=== PATIENT | female | born 1960 | race Caucasian/White ===

== ENCOUNTER 2018-02-06 09:14 | Emergency (ER) | payer MEDICAID ==
[~2018-02-06] VITALS: Ht 154.9 cm; Wt 55.2 kg
[~2018-02-06 09:14] MED LIST: ACET325T14 PO; CEFD300C37 PO; CLAR500T PO; CYAN10005 PO; DOXY100T PO; ERGO500017 PO; FOLI-17 PO; PANT40TA5 PO; THIA100T67 PO
[2018-02-06] MEDS ORDERED: ATEN25TA PO (09:56)
[2018-02-06] MEDS ORDERED: LORA2TAB PO (09:56)
[2018-02-06] MEDS ORDERED: SIMV5TAB14 PO (09:58)
--- NOTE | 2018-02-06 10:03 | NUR ---
ST CONTACT WITH PATIENT, C/O DIZZINESS AND LOW BACK PAIN, TRAIN GATEMAN ON PATIENT, NAD NOTED, PATIENT ALSO C/O PAINFUL URINATION, RECENTLY DIAGNOSED AND FINISHED TAKING ABX FOR UTI 2-3 WEEKS AGO, ABX NOT HELPING. LAB AT BEDSIDE, CALL LIGHT WITHIN REACH. Addendum: 02/06/18 at 1004 by MILLIE FIRST CONTACT WITH PATIENT, C/O DIZZINESS AND LOW BACK PAIN, TRAIN GATEMAN ON PATIENT, NAD NOTED, PATIENT ALSO C/O PAINFUL URINATION, RECENTLY DIAGNOSED AND FINISHED TAKING ABX FOR UTI 2-3 WEEKS AGO, ABX NOT HELPING. LAB AT BEDSIDE, CALL LIGHT WITHIN REACH.
--- NOTE | 2018-02-06 10:05 | NUR ---
PATIENT AMBULATORY TO BATHROOM WITH STEADY GAIT, SMALL AMOUNT OF URINE COLLECTED AND WALKED TO LAB.
[2018-02-06 10:11] LABS: BASOPHILS # (AUTO) 0.06 x10^3/uL (0-0.1); BASOPHILS % (AUTO) 1 % (0-1); EOSINOPHILS # (AUTO) 0.04 x10^3/uL (0-0.4); EOSINOPHILS % (AUTO) 1 % (1-7); LYMPHOCYTES # (AUTO) 2.15 x10^3/uL (1-3.4); LYMPHOCYTES % (AUTO) 31 % (22-44); MD NO; MEAN CORPUSCULAR HGB CONC 33.3 g/dL (32.4-35.8); MEAN CORPUSCULAR VOLUME 96.2 fL (80-100); MEAN PLATELET VOLUME 6.7 fL (7.4-10.4); MONOCYTES # (AUTO) 0.34 x10^3/uL (0.2-0.8); MONOCYTES % (AUTO) 5 % (2-9); NEUTROPHILS # (AUTO) 4.32 x10^3/uL (1.8-6.8); NEUTROPHILS % (AUTO) 63 % (42-75); PLATELET COUNT 492 x10^3/uL (130-400); RED BLOOD COUNT 3.41 x10^6/uL (3.82-5.3); RED CELL DISTRIBUTION WIDTH 16.6 % (9.6-15.2)
[2018-02-06 10:23] LABS: ALANINE AMINOTRANSFERASE 22 U/L (12-78); ANION GAP 10 mmol/L (5-15); CALCIUM 8.6 mg/dL (8.5-10.1); CHLORIDE 112 mmol/L (98-107); CREATININE 2.29 mg/dL (0.55-1.02)
[2018-02-06 10:25] LABS: ALKALINE PHOSPHATASE 118 U/L (45-117); BILIRUBIN,TOTAL 0.4 mg/dL (0.2-1.0); TOTAL PROTEIN 7.5 g/dL (6.4-8.2)
[2018-02-06 10:39] LABS: CULTURE INDICATED? YES; MICROSCOPIC INDICATED
--- NOTE | 2018-02-06 11:15 | NUR ---
RESULTS BACK, CHART UP FOR RECHECK.
[2018-02-06] MEDS ORDERED: SULFAMETH./TRIMETHOPRIM DS 800MG/160MG TABLET ONE (11:30)
[2018-02-06] MEDS ORDERED: SULFAMETH./TRIMETHOPRIM DS 800MG/160MG TABLET PO ONE (11:30)
[2018-02-06 11:44] VITALS: BP 106/65
--- NOTE | 2018-02-06 11:46 | NUR ---
Patient/Caregiver given discharge instructions and they have confirmed that they understand the instructions. Patient ambulatory with steady gait.
== END 2018-02-06 11:47 | disposition home or self-care (01) ==
LOC: ED 10:38
DX: R55 Syncope and collapse (principal); N30.01 Acute cystitis with hematuria; R42 Dizziness and giddiness; I10 Essential (primary) hypertension
CPT/HCPCS: 36415; 80053; 81001; 83735; 85025; 87077; 87086; 87186; 93005; 99284

== ENCOUNTER 2018-02-26 13:24 | Inpatient (IN) | payer MEDICAID ==
[~2018-02-26] VITALS: Ht 152.4 cm; Wt 66.6 kg
[2018-02-26] MEDS: SODIUM CHLORIDE 0.9% 1,000 ML IV SCH ×2 (06:00→17:06)
[~2018-02-26 13:24] MED LIST changes: +ATEN25TA PO; +LORA2TAB PO; +SIMV5TAB14 PO
[2018-02-26 14:42] LABS: MEAN CORPUSCULAR HEMOGLOBIN 32.6 pg (27.0-34.8); MEAN CORPUSCULAR HGB CONC 33.1 g/dL (32.4-35.8); MEAN CORPUSCULAR VOLUME 98.6 fL (80-100); MEAN PLATELET VOLUME 6.4 fL (7.4-10.4); PLATELET COUNT 593 x10^3/uL (130-400); RED BLOOD COUNT 2.99 x10^6/uL (3.82-5.3)
--- NOTE | 2018-02-26 14:46 | NUR ---
PT WALKED BACK TO ROOM
[2018-02-26 14:49] LABS: ALBUMIN 2.4 g/dL (3.4-5.0); ANION GAP 9 mmol/L (5-15); CALCIUM 8.5 mg/dL (8.5-10.1); CHLORIDE 110 mmol/L (98-107); CREATININE 2.69 mg/dL (0.55-1.02); MD YES
[2018-02-26 15:08] LABS: BAND#(MANUAL) 1.65 x10^3/uL; BANDS%(MANUAL) 6 % (0-7); LYMPH#(MANUAL) 2.75 x10^3/uL (1-3.4); LYMPHS% (MANUAL) 10 % (22-44); MONOS#(MANUAL) 0.55 x10^3/uL (0.3-2.7); MONOS% (MANUAL) 2 % (2-9); SEG#(MANUAL) 22.55 x10^3/uL (1.8-6.8); SEGS% (MANUAL) 82 % (42-75)
[2018-02-26 15:10] LABS: <PLATELET ESTIMATE> INCREASED; <PLT MORPHOLOGY> NORMAL PLT MORPH; ANISOCYTOSIS 1+; MICROCYTOSIS 1+
[2018-02-26 15:31] LABS: MICROSCOPIC AUTO
[2018-02-26 15:33] LABS: CULTURE INDICATED? YES
--- NOTE | 2018-02-26 16:26 | NUR ---
PT RESTING ON GURNEY, RR EVEN AND UNLABORED. PT ON CONT. MONITORS, VSS. AWAITING RESULTS AND DISPO
--- NOTE | 2018-02-26 16:53 | NUR ---
PT IS HYPOTENSIVE 85/48, DR. WALTON NOTIFIED. IVF BOLUS ORDERED PER [facility]
[2018-02-26] MEDS ORDERED: CEFTRIAXONE PMX 1GM/50ML 50 ML IV ONE (17:00)
[2018-02-26] MEDS ORDERED: SODIUM CHLORIDE 0.9% 1,000ML IVBOLUS ONE ×2 (17:00→21:30)
[2018-02-26] MEDS ORDERED: ACETAMINOPHEN 500 MG TABLET ONE (17:04)
[2018-02-26] MEDS ORDERED: CEFTRIAXONE PMX 1GM/50ML 50 ML ONE (17:04)
--- NOTE | 2018-02-26 17:19 | NUR ---
PT'S BP IS STILL LOW, PRESSURE BAGGING FLUID IN ATT
--- NOTE | 2018-02-26 17:19 | NUR ---
SEPSIS TIME ZERO [id number]
[2018-02-26] MEDS: CEFTRIAXONE PMX 1GM/50ML 50 ML IV SCH (17:20)
[2018-02-26] MEDS ORDERED: ONDANSETRON ODT 4 MG PO PRN (17:30)
[2018-02-26] MEDS ORDERED: ACETAMINOPHEN 500 MG TABLET PO ONE (17:30)
[2018-02-26] MEDS ORDERED: ONDANSETRON 2MG/ML, 2ML IVPush PRN (17:30)
[2018-02-26] MEDS ORDERED: HEPARIN 5,000 UNITS/ML, 1ML SQ SCH (17:30)
--- NOTE | 2018-02-26 17:42 | NUR ---
PT'S MANUAL BP 90/52. PT IS FLUID RESPONSIVE. PER DR. WALTON OK TO TRANSFER TO FLOOR
--- NOTE | 2018-02-26 17:46 | NUR ---
REPORT GIVEN TO CAROLEE WOOD
--- NOTE | 2018-02-26 17:48 | NUR ---
PT RECEIVED A TOTAL OF 3L NS BOLUS PER DR. WALTON
[2018-02-26] MEDS ORDERED: DIPHENHYDRAMINE 50 MG/ML, 1ML ONE (18:11)
[2018-02-26] MEDS ORDERED: DIPHENHYDRAMINE 50 MG/ML, 1ML IVPush ONE (18:30)
[2018-02-26] MEDS: HEPARIN 5,000 UNITS/ML, 1ML SQ SCH (20:14)
[2018-02-26 20:43] VITALS: BP 80/52
[2018-02-26 22:30] VITALS: BP 100/66
[2018-02-27] VITALS (13 sets, daily range): BP systolic 82–115; BP diastolic 40–73
[2018-02-27] MEDS ORDERED: SODIUM CHLORIDE 0.9%, 500ML IVBOLUS ONE (02:00)
[2018-02-27] MEDS: ACETAMINOPHEN 325 MG TABLET PO PRN ×4 (02:13→21:51)
[2018-02-27] MEDS ORDERED: SODIUM CHLORIDE 0.9% 1,000ML IVBOLUS ONE (05:00)
[2018-02-27 06:36] LABS: MEAN CORPUSCULAR HEMOGLOBIN 32.5 pg (27.0-34.8); MEAN CORPUSCULAR HGB CONC 33.3 g/dL (32.4-35.8); MEAN CORPUSCULAR VOLUME 97.5 fL (80-100); MEAN PLATELET VOLUME 6.2 fL (7.4-10.4); PLATELET COUNT 406 x10^3/uL (130-400); RED BLOOD COUNT 2.18 x10^6/uL (3.82-5.3); RED CELL DISTRIBUTION WIDTH 16.2 % (9.6-15.2)
[2018-02-27 06:42] LABS: ANION GAP 11 mmol/L (5-15); CHLORIDE 119 mmol/L (98-107); CREATININE 2.12 mg/dL (0.55-1.02)
[2018-02-27 07:15] LABS: MD YES
[2018-02-27 07:17] LABS: BAND#(MANUAL) 1.08 x10^3/uL; BANDS%(MANUAL) 6 % (0-7); LYMPHS% (MANUAL) 5 % (22-44); MONOS#(MANUAL) 0.54 x10^3/uL (0.3-2.7); MONOS% (MANUAL) 3 % (2-9); SEG#(MANUAL) 15.48 x10^3/uL (1.8-6.8); SEGS% (MANUAL) 86 % (42-75)
[2018-02-27 07:18] LABS: ANISOCYTOSIS 1+; POLYCHROMASIA 1+; SPHEROCYTES 1+
[2018-02-27 07:19] LABS: <PLATELET ESTIMATE> INCREASED; <PLT MORPHOLOGY> NORMAL PLT MORPH
[2018-02-27] MEDS: HEPARIN 5,000 UNITS/ML, 1ML SQ SCH ×2 (09:00→20:14)
[2018-02-27] MEDS: SODIUM CHLORIDE 0.9% 1,000 ML IV SCH ×2 (12:40→22:20)
[2018-02-27] MEDS: CEFTRIAXONE PMX 1GM/50ML 50 ML IV SCH (17:35)
[2018-02-28 01:37] VITALS: BP 95/48
[2018-02-28] MEDS: ACETAMINOPHEN 325 MG TABLET PO PRN (05:42)
[2018-02-28 05:50] LABS: BASOPHILS # (AUTO) 0.02 x10^3/uL (0-0.1); BASOPHILS % (AUTO) 0 % (0-1); EOSINOPHILS # (AUTO) 0.17 x10^3/uL (0-0.4); EOSINOPHILS % (AUTO) 1 % (1-7); LYMPHOCYTES # (AUTO) 1.37 x10^3/uL (1-3.4); LYMPHOCYTES % (AUTO) 11 % (22-44); MD NO; MEAN CORPUSCULAR HEMOGLOBIN 33.1 pg (27.0-34.8); MEAN CORPUSCULAR HGB CONC 34.2 g/dL (32.4-35.8); MEAN CORPUSCULAR VOLUME 96.8 fL (80-100); MONOCYTES # (AUTO) 0.83 x10^3/uL (0.2-0.8); MONOCYTES % (AUTO) 7 % (2-9); NEUTROPHILS # (AUTO) 10.34 x10^3/uL (1.8-6.8); NEUTROPHILS % (AUTO) 81 % (42-75); PLATELET COUNT 348 x10^3/uL (130-400); RED BLOOD COUNT 2.63 x10^6/uL (3.82-5.3); RED CELL DISTRIBUTION WIDTH 15.5 % (9.6-15.2)
[2018-02-28 05:53] LABS: % IRON SATURATION 9 % (20-55); ANION GAP 10 mmol/L (5-15); CALCIUM 7.6 mg/dL (8.5-10.1); CHLORIDE 120 mmol/L (98-107); CREATININE 2.15 mg/dL (0.55-1.02); IRON LEVEL 12 mcg/dL (50-170); TOTAL IRON BINDING CAPACITY 134 mcg/dL (250-450)
[2018-02-28 08:00] VITALS: BP 93/60
[2018-02-28] MEDS: SODIUM CHLORIDE 0.9% 1,000 ML IV SCH ×2 (09:03→20:33)
[2018-02-28] MEDS: HEPARIN 5,000 UNITS/ML, 1ML SQ SCH ×2 (09:03→20:34)
[2018-02-28] MEDS ORDERED: BUTALB/APAP/CAFFEINE 50MG/325MG/40MG ONE (10:07)
[2018-02-28] MEDS: BUTALB/APAP/CAFFEINE 50MG/325MG/40MG PO PRN ×2 (10:12→17:27)
[2018-02-28 14:26] VITALS: BP 98/64
[2018-02-28] MEDS: CEFTRIAXONE PMX 1GM/50ML 50 ML IV SCH (17:26)
[2018-02-28 20:31] VITALS: BP 100/62
[2018-03-01 01:14] VITALS: BP 109/69
[2018-03-01] MEDS: BUTALB/APAP/CAFFEINE 50MG/325MG/40MG PO PRN ×3 (01:24→22:54)
[2018-03-01 06:21] LABS: BASOPHILS # (AUTO) 0.04 x10^3/uL (0-0.1); BASOPHILS % (AUTO) 1 % (0-1); EOSINOPHILS # (AUTO) 0.26 x10^3/uL (0-0.4); EOSINOPHILS % (AUTO) 4 % (1-7); LYMPHOCYTES # (AUTO) 1.59 x10^3/uL (1-3.4); LYMPHOCYTES % (AUTO) 22 % (22-44); MD NO; MEAN CORPUSCULAR HEMOGLOBIN 32.1 pg (27.0-34.8); MEAN CORPUSCULAR HGB CONC 33.4 g/dL (32.4-35.8); MEAN CORPUSCULAR VOLUME 96.3 fL (80-100); MONOCYTES # (AUTO) 0.77 x10^3/uL (0.2-0.8); MONOCYTES % (AUTO) 10 % (2-9); NEUTROPHILS # (AUTO) 4.74 x10^3/uL (1.8-6.8); NEUTROPHILS % (AUTO) 64 % (42-75); PLATELET COUNT 351 x10^3/uL (130-400); RED BLOOD COUNT 2.46 x10^6/uL (3.82-5.3); RED CELL DISTRIBUTION WIDTH 15.3 % (9.6-15.2)
[2018-03-01 06:53] LABS: CHLORIDE 122 mmol/L (98-107)
[2018-03-01 07:11] LABS: ALANINE AMINOTRANSFERASE 11 U/L (12-78); ALBUMIN 1.4 g/dL (3.4-5.0); ALKALINE PHOSPHATASE 137 U/L (45-117); ANION GAP 9 mmol/L (5-15); BILIRUBIN,TOTAL 0.5 mg/dL (0.2-1.0); CALCIUM 7.3 mg/dL (8.5-10.1); CREATININE 2.08 mg/dL (0.55-1.02); TOTAL PROTEIN 4.6 g/dL (6.4-8.2)
[2018-03-01 08:00] VITALS: BP 103/64
[2018-03-01] MEDS ORDERED: FERROUS SULFATE 325 MG TABLET PO SCH (08:00)
[2018-03-01] MEDS: SODIUM BICARBONATE 650 MG TABLET PO SCH ×2 (08:45→21:01)
[2018-03-01 08:59] LABS: FOLATE LEVEL > 20.0 ng/mL (3.1-17.5)
[2018-03-01] MEDS: SODIUM CHLORIDE 0.9% 1,000 ML IV SCH (12:39)
[2018-03-01 13:08] VITALS: BP 114/78
[2018-03-01] MEDS: CEFTRIAXONE PMX 1GM/50ML 50 ML IV SCH (16:50)
[2018-03-01] MEDS ORDERED: SODIUM CHLORIDE 0.9% 1,000 ML IV SCH (17:06)
[2018-03-01 20:00] VITALS: BP 107/71
[2018-03-02 02:00] VITALS: BP 92/60
[2018-03-02 05:49] LABS: BASOPHILS # (AUTO) 0.04 x10^3/uL (0-0.1); BASOPHILS % (AUTO) 1 % (0-1); EOSINOPHILS # (AUTO) 0.32 x10^3/uL (0-0.4); EOSINOPHILS % (AUTO) 4 % (1-7); LYMPHOCYTES % (AUTO) 22 % (22-44); MD NO; MEAN CORPUSCULAR HEMOGLOBIN 32.6 pg (27.0-34.8); MEAN CORPUSCULAR HGB CONC 33.7 g/dL (32.4-35.8); MEAN CORPUSCULAR VOLUME 96.8 fL (80-100); MEAN PLATELET VOLUME 6.8 fL (7.4-10.4); MONOCYTES # (AUTO) 0.91 x10^3/uL (0.2-0.8); MONOCYTES % (AUTO) 12 % (2-9); NEUTROPHILS # (AUTO) 4.62 x10^3/uL (1.8-6.8); NEUTROPHILS % (AUTO) 61 % (42-75); PLATELET COUNT 360 x10^3/uL (130-400); RED BLOOD COUNT 2.73 x10^6/uL (3.82-5.3); RED CELL DISTRIBUTION WIDTH 15.8 % (9.6-15.2)
[2018-03-02 05:59] LABS: ALBUMIN 1.5 g/dL (3.4-5.0); ANION GAP 7 mmol/L (5-15); CALCIUM 7.4 mg/dL (8.5-10.1); CHLORIDE 122 mmol/L (98-107); CREATININE 2.14 mg/dL (0.55-1.02)
[2018-03-02 06:01] LABS: ALANINE AMINOTRANSFERASE 13 U/L (12-78); ALKALINE PHOSPHATASE 140 U/L (45-117); BILIRUBIN,TOTAL 0.4 mg/dL (0.2-1.0); TOTAL PROTEIN 4.9 g/dL (6.4-8.2)
[2018-03-02] MEDS ORDERED: LEVOFLOXACIN 750 MG TABLET PO SCH (07:30)
[2018-03-02 07:56] VITALS: BP 115/72
[2018-03-02] MEDS: SODIUM BICARBONATE 650 MG TABLET PO SCH (08:21)
[2018-03-02] MEDS ORDERED: ACET325T14 PO (10:16)
[2018-03-02] MEDS ORDERED: SODI650T PO (10:16)
[2018-03-02] MEDS ORDERED: LEVO500T47 PO (10:16)
[2018-03-02 14:36] VITALS: BP 116/75
== END 2018-03-02 17:05 | disposition home or self-care (01) | DRG 871 ==
LOC: ED 15:04 → EDIP 16:42 → 4WST 18:55
PROVIDERS: ADMIT Hospitalist; ATTEND Hospitalist
PROC: 30233N1 Transfusion of Nonautologous Red Blood Cells into Peripheral Vein, Percutaneous Approach (ICD-10-PCS; principal; 2018-02-27)
DX: A41.9 Sepsis, unspecified organism (principal); N17.0 Acute kidney failure with tubular necrosis; D62 Acute posthemorrhagic anemia; N12 Tubulo-interstitial nephritis, not specified as acute or chronic; B96.20 Unspecified Escherichia coli [E. coli] as the cause of diseases classified elsewhere; E88.09 Other disorders of plasma-protein metabolism, not elsewhere classified; F41.1 Generalized anxiety disorder; I12.9 Hypertensive chronic kidney disease with stage 1 through stage 4 chronic kidney disease, or unspecified chronic kidney disease; N18.3 Chronic kidney disease, stage 3 (moderate)
CPT/HCPCS: 36415; 80048; 80053; 81001; 82040; 82607; 82728; 82746; 83540; 83550; 83605; 84443; 85025; 86850; 86900; 86923; 87040; 87077; 87086; 87186; 99285; G0378; J0696; J1644; Q0162; J7030; J7040; P9016

== ENCOUNTER 2018-05-21 14:45 | Inpatient (IN) | payer MEDICAID ==
[~2018-05-21] VITALS: Ht 154.9 cm; Wt 57.4 kg
[~2018-05-21 14:45] MED LIST changes: +LEVO500T47 PO; +SODI650T PO
[2018-05-21] MEDS ORDERED: ASPIRIN 81 MG TABLET CHEW PO ONE (15:00)
[2018-05-21] MEDS ORDERED: ASPIRIN 81 MG TABLET CHEW ONE (15:10)
[2018-05-21] MEDS ORDERED: ALPR-475 PO (15:16)
[2018-05-21] MEDS ORDERED: ESCI10TA PO (15:16)
[2018-05-21] MEDS ORDERED: LISI5TAB7 PO (15:16)
[2018-05-21] MEDS ORDERED: ATEN25TA PO (15:16)
[2018-05-21] MEDS ORDERED: SODIUM CHLORIDE FLUSH 10ML SYR IVF ONE (15:30)
[2018-05-21] MEDS ORDERED: SODIUM CHLORIDE 0.9% 1,000ML IVBOLUS ONE (15:30)
--- NOTE | 2018-05-21 15:33 | NUR ---
pt to XR
[2018-05-21 15:50] LABS: BASOPHILS # (AUTO) 0.01 x10^3/uL (0-0.1); BASOPHILS % (AUTO) 0 % (0-1); EOSINOPHILS # (AUTO) 0.22 x10^3/uL (0-0.4); EOSINOPHILS % (AUTO) 4 % (1-7); LYMPHOCYTES % (AUTO) 33 % (22-44); MD NO; MEAN CORPUSCULAR HEMOGLOBIN 32.1 pg (27.0-34.8); MEAN CORPUSCULAR HGB CONC 34.1 g/dL (32.4-35.8); MEAN CORPUSCULAR VOLUME 94.2 fL (80-100); MEAN PLATELET VOLUME 7.3 fL (7.4-10.4); MONOCYTES % (AUTO) 5 % (2-9); NEUTROPHILS # (AUTO) 3.29 x10^3/uL (1.8-6.8); NEUTROPHILS % (AUTO) 58 % (42-75); PLATELET COUNT 259 x10^3/uL (130-400); RED BLOOD COUNT 3.48 x10^6/uL (3.82-5.3); RED CELL DISTRIBUTION WIDTH 13.6 % (9.6-15.2)
--- NOTE | 2018-05-21 16:01 | NUR ---
pt upright on gurney awake & comfortable, responds approp to staff, NAD, comfort measures provided, son at BS, call light withiin reach.
[2018-05-21 16:02] LABS: ALANINE AMINOTRANSFERASE 10 U/L (12-78); ALBUMIN 3.4 g/dL (3.4-5.0); ANION GAP 11 mmol/L (5-15); CALCIUM 8.1 mg/dL (8.5-10.1); CHLORIDE 109 mmol/L (98-107); CREATININE 3.06 mg/dL (0.55-1.02)
[2018-05-21 16:06] LABS: ALKALINE PHOSPHATASE 119 U/L (45-117); BILIRUBIN,TOTAL 0.3 mg/dL (0.2-1.0); TROPONIN I < 0.015 ng/mL (0.000-0.045)
--- NOTE | 2018-05-21 17:00 | NUR ---
pt remains upright on gurney awake & comfortable, responds approp to staff, NAD, comfort measures provided, son at BS, call light withiin reach.
[2018-05-21 17:21] LABS: MICROSCOPIC AUTO
[2018-05-21 17:22] LABS: CULTURE INDICATED? YES
--- NOTE | 2018-05-21 17:59 | NUR ---
pt upright on gurney awake & comfortable, responds approp to staff, NAD, comfort measures provided, son at BS, call light withiin reach.
--- NOTE | 2018-05-21 18:39 | NUR ---
Pt to be admitted to [facility], room 521-2. Report called to Rozina.
[2018-05-21] MEDS ORDERED: POLYETHYLENE GLYCOL 17 GM PACKET PO PRN (19:00)
[2018-05-21] MEDS ORDERED: BISACODYL 10 MG SUPP PR PRN (19:00)
[2018-05-21] MEDS ORDERED: ONDANSETRON ODT 4 MG PO PRN (19:00)
[2018-05-21] MEDS ORDERED: CHOLECALCIFEROL 5,000u TAB PO SCH (19:30)
[2018-05-21 20:00] VITALS: BP 100/63
[2018-05-21 20:02] VITALS: BP 99/65
[2018-05-21 20:05] VITALS: BP 98/64
[2018-05-21] MEDS ORDERED: ERGOCALCIFEROL 50,000 UNIT CAPSULE PO SCH (22:30)
[2018-05-21] MEDS: SODIUM CHLORIDE 0.9% 1,000 ML IV SCH (22:51)
[2018-05-21] MEDS: HEPARIN 5,000 UNITS/ML, 1ML SQ SCH (22:52)
[2018-05-22 00:09] LABS: CREATININE,URINE RANDOM 24.7 mg/dL
[2018-05-22 01:26] VITALS: BP 90/58
[2018-05-22 05:43] LABS: BASOPHILS # (AUTO) 0.02 x10^3/uL (0-0.1); BASOPHILS % (AUTO) 0 % (0-1); EOSINOPHILS # (AUTO) 0.74 x10^3/uL (0-0.4); EOSINOPHILS % (AUTO) 12 % (1-7); LYMPHOCYTES # (AUTO) 2.23 x10^3/uL (1-3.4); LYMPHOCYTES % (AUTO) 37 % (22-44); MD NO; MEAN CORPUSCULAR HEMOGLOBIN 32.2 pg (27.0-34.8); MEAN CORPUSCULAR HGB CONC 34.1 g/dL (32.4-35.8); MEAN CORPUSCULAR VOLUME 94.5 fL (80-100); MEAN PLATELET VOLUME 7.4 fL (7.4-10.4); MONOCYTES # (AUTO) 0.49 x10^3/uL (0.2-0.8); MONOCYTES % (AUTO) 8 % (2-9); NEUTROPHILS # (AUTO) 2.54 x10^3/uL (1.8-6.8); NEUTROPHILS % (AUTO) 42 % (42-75); PLATELET COUNT 226 x10^3/uL (130-400); RED BLOOD COUNT 3.07 x10^6/uL (3.82-5.3); RED CELL DISTRIBUTION WIDTH 13.5 % (9.6-15.2)
[2018-05-22 05:56] LABS: CHLORIDE 117 mmol/L (98-107)
[2018-05-22] MEDS: SODIUM CHLORIDE 0.9% 1,000 ML IV SCH (06:00)
[2018-05-22 06:03] LABS: ALANINE AMINOTRANSFERASE 10 U/L (12-78); ALBUMIN 2.6 g/dL (3.4-5.0); ALKALINE PHOSPHATASE 97 U/L (45-117); ANION GAP 14 mmol/L (5-15); BILIRUBIN,TOTAL 0.5 mg/dL (0.2-1.0); CALCIUM 7.3 mg/dL (8.5-10.1); CREATININE 3.18 mg/dL (0.55-1.02); TOTAL PROTEIN 5.5 g/dL (6.4-8.2)
[2018-05-22 07:28] VITALS: BP 101/63
[2018-05-22] MEDS ORDERED: IRON SUCROSE COMPLEX 100MG/5ML IV ONE (09:00)
[2018-05-22] MEDS: SENNA/DOCUSATE TABLET PO SCH (09:49)
[2018-05-22] MEDS: ACETAMINOPHEN 325 MG TABLET PO PRN ×3 (09:51→22:12)
[2018-05-22] MEDS: CITALOPRAM 20 MG TABLET PO SCH (09:52)
[2018-05-22] MEDS: HEPARIN 5,000 UNITS/ML, 1ML SQ SCH ×2 (09:58→18:08)
[2018-05-22] MEDS: SODIUM BICARBONATE 8.4% 150 MEQ in DEXTROSE 5% 1,000 ML IV SCH ×2 (09:59→21:11)
[2018-05-22 12:35] VITALS: BP 101/62
[2018-05-22 13:56] LABS: ANION GAP 10 mmol/L (5-15); CALCIUM 7.5 mg/dL (8.5-10.1); CHLORIDE 114 mmol/L (98-107); CREATININE 2.85 mg/dL (0.55-1.02)
[2018-05-22] MEDS ORDERED: POTASSIUM CHLORIDE 20 MEQ TAB.ER.PRT PO ONE (14:30)
[2018-05-22 18:53] VITALS: BP 99/63
[2018-05-22] MEDS: SIMVASTATIN 5 MG TABLET PO SCH (21:11)
[2018-05-23] MEDS: HEPARIN 5,000 UNITS/ML, 1ML SQ SCH ×3 (01:28→17:23)
[2018-05-23 01:58] VITALS: BP 109/69
[2018-05-23] MEDS: ACETAMINOPHEN 325 MG TABLET PO PRN ×3 (02:48→23:50)
[2018-05-23 05:55] LABS: BASOPHILS % (AUTO) 0 % (0-1); EOSINOPHILS # (AUTO) 0.26 x10^3/uL (0-0.4); EOSINOPHILS % (AUTO) 5 % (1-7); LYMPHOCYTES # (AUTO) 2.11 x10^3/uL (1-3.4); LYMPHOCYTES % (AUTO) 38 % (22-44); MD NO; MEAN CORPUSCULAR HEMOGLOBIN 31.6 pg (27.0-34.8); MEAN CORPUSCULAR HGB CONC 33.7 g/dL (32.4-35.8); MEAN CORPUSCULAR VOLUME 93.7 fL (80-100); MEAN PLATELET VOLUME 7.8 fL (7.4-10.4); MONOCYTES # (AUTO) 0.44 x10^3/uL (0.2-0.8); MONOCYTES % (AUTO) 8 % (2-9); NEUTROPHILS # (AUTO) 2.69 x10^3/uL (1.8-6.8); NEUTROPHILS % (AUTO) 49 % (42-75); PLATELET COUNT 230 x10^3/uL (130-400); RED BLOOD COUNT 2.78 x10^6/uL (3.82-5.3); RED CELL DISTRIBUTION WIDTH 13.6 % (9.6-15.2)
[2018-05-23 06:03] LABS: CHLORIDE 110 mmol/L (98-107); CREATININE 2.25 mg/dL (0.55-1.02)
[2018-05-23 06:10] LABS: ANION GAP 11 mmol/L (5-15); CALCIUM 6.9 mg/dL (8.5-10.1)
[2018-05-23] MEDS: SODIUM BICARBONATE 8.4% 150 MEQ in DEXTROSE 5% 1,000 ML IV SCH ×3 (06:41→23:48)
[2018-05-23 08:52] VITALS: BP 123/78
[2018-05-23] MEDS: SENNA/DOCUSATE TABLET PO SCH (09:00)
[2018-05-23] MEDS: CITALOPRAM 20 MG TABLET PO SCH (09:16)
[2018-05-23] MEDS ORDERED: POTASSIUM CHLORIDE 40 MEQ in SODIUM CHLORIDE 0.9% 500 ML IV ONE (12:00)
[2018-05-23] MEDS: CALCIUM CARBONATE 500 MG TABLET PO SCH ×2 (13:02→21:06)
[2018-05-23 14:39] VITALS: BP 112/72
[2018-05-23] MEDS ORDERED: POTASSIUM PHOSPHATE 22 MEQ in SODIUM CHLORIDE 0.9% 500 ML IV ONE (16:00)
[2018-05-23] MEDS: POTASSIUM CHLORIDE 20 MEQ TAB.ER.PRT PO SCH (17:23)
[2018-05-23 20:00] VITALS: BP 112/68
[2018-05-23] MEDS: SIMVASTATIN 5 MG TABLET PO SCH (21:05)
[2018-05-24 00:58] VITALS: BP 112/72
[2018-05-24] MEDS: HEPARIN 5,000 UNITS/ML, 1ML SQ SCH ×2 (02:47→10:25)
[2018-05-24] MEDS: ACETAMINOPHEN 325 MG TABLET PO PRN (04:45)
[2018-05-24 06:22] LABS: BASOPHILS # (AUTO) 0.04 x10^3/uL (0-0.1); BASOPHILS % (AUTO) 1 % (0-1); EOSINOPHILS # (AUTO) 0.37 x10^3/uL (0-0.4); EOSINOPHILS % (AUTO) 6 % (1-7); LYMPHOCYTES # (AUTO) 2.66 x10^3/uL (1-3.4); LYMPHOCYTES % (AUTO) 44 % (22-44); MD NO; MEAN CORPUSCULAR HEMOGLOBIN 31.9 pg (27.0-34.8); MEAN CORPUSCULAR HGB CONC 34.3 g/dL (32.4-35.8); MEAN PLATELET VOLUME 7.6 fL (7.4-10.4); MONOCYTES # (AUTO) 0.54 x10^3/uL (0.2-0.8); MONOCYTES % (AUTO) 9 % (2-9); NEUTROPHILS # (AUTO) 2.38 x10^3/uL (1.8-6.8); NEUTROPHILS % (AUTO) 40 % (42-75); PLATELET COUNT 236 x10^3/uL (130-400); RED CELL DISTRIBUTION WIDTH 13.9 % (9.6-15.2)
[2018-05-24 06:32] LABS: CHLORIDE 108 mmol/L (98-107)
[2018-05-24 06:35] LABS: ANION GAP 6 mmol/L (5-15); CALCIUM 7.2 mg/dL (8.5-10.1); CREATININE 1.77 mg/dL (0.55-1.02)
[2018-05-24] MEDS: POTASSIUM CHLORIDE 20 MEQ TAB.ER.PRT PO SCH (08:05)
[2018-05-24] MEDS: CALCIUM CARBONATE 500 MG TABLET PO SCH (08:06)
[2018-05-24] MEDS: CITALOPRAM 20 MG TABLET PO SCH (08:06)
[2018-05-24] MEDS: SENNA/DOCUSATE TABLET PO SCH (08:09)
[2018-05-24 08:36] VITALS: BP 126/78
[2018-05-24] MEDS ORDERED: ERGO500017 PO (15:22)
[2018-05-24] MEDS ORDERED: CALC-666 PO (15:22)
[2018-05-24 15:31] VITALS: BP 116/75
== END 2018-05-24 17:05 | disposition home or self-care (01) | DRG 312 ==
LOC: ED 16:38 → EDIP 17:47 → 5SO 19:15 → DCLOUNGE 05-24 16:36
PROVIDERS: ADMIT Internal Medicine; ATTEND Internal Medicine
DX: I95.2 Hypotension due to drugs (principal); N17.0 Acute kidney failure with tubular necrosis; E43 Unspecified severe protein-calorie malnutrition; E87.1 Hypo-osmolality and hyponatremia; E87.2 Acidosis; N18.4 Chronic kidney disease, stage 4 (severe); G90.8 Other disorders of autonomic nervous system; E55.9 Vitamin D deficiency, unspecified; E78.5 Hyperlipidemia, unspecified; E86.0 Dehydration; E87.6 Hypokalemia; F32.9 Major depressive disorder, single episode, unspecified; F41.1 Generalized anxiety disorder; I12.9 Hypertensive chronic kidney disease with stage 1 through stage 4 chronic kidney disease, or unspecified chronic kidney disease; Z82.49 Family history of ischemic heart disease and other diseases of the circulatory system; Z98.84 Bariatric surgery status; T46.5X5A Adverse effect of other antihypertensive drugs, initial encounter; Y92.89 Other specified places as the place of occurrence of the external cause; D63.8 Anemia in other chronic diseases classified elsewhere; Z68.23 Body mass index [BMI] 23.0-23.9, adult
CPT/HCPCS: 36415; 70450; 71046; 76770; 80048; 80053; 81001; 82436; 82533; 82570; 83735; 84100; 84133; 84156; 84300; 84443; 84484; 85025; 86850; 86900; 87040; 87086; 93005; 93306; 93880; G0378; J1644; J1756; J3480; J7070; Q0162; J7030; J7040